=== PATIENT | male | born 1965 | race Caucasian/White ===

== ENCOUNTER → 2022-02-07 11:12 | Outpatient (BNVA) | payer OTHER, SELFPAY | PROVIDERS: Visit Provider Surgery | DX: K21.9 Gastro-esophageal reflux disease without esophagitis (principal) | CPT/HCPCS: 99203 ==

== ENCOUNTER 2022-04-29 06:03 | Day surgery (SDC) | payer OTHER, SELFPAY ==
--- NOTE | 2022-04-29 06:14 | W.PM.OPSFHP ---
Same Day Surgery H&P Indication for Procedure/HPI DATE OF PROCEDURE: April 29, 2022 CHIEF COMPLAINT/INDICATIONFOR SURGICAL PROCEDURE: Worsening acid reflux PREOP DIAGNOSIS: Acid reflux PLANNED PROCEDURE: Operation Date: 04/29/22 07:30 Proposed Procedures p EGD 54921,K21.9(Not Applicable) - Juan Qiu MD 02/07/2022 This is a 56 years old gentleman referred to my practice with worsening acid reflux.? Over the past period of time, has been on PPI therapy for more than 6 months.? Patient is referred to my practice for consideration of diagnostic EGD.? Denies any hematemesis or hemoptysis or nonintentional weight loss or dysphagia or odynophagia Current symptoms: Denies odynophagia Interim history 04/29/2022 Patient comes today for scheduled diagnostic EGD ROS All systems have been reviewed negative except as for the above or per problem list. Medications/Allergies* Home Medications Medication Instructions Recorded Confirmed Type acetaminophen 500 mg capsule 500 mg PO Q6H PRN Pain 02/07/22 04/27/22 History albuterol sulfate 90 mcg/actuation 1 inh inhalation QID 02/07/22 04/27/22 History aerosol inhaler amitriptyline 75 mg tablet 75 mg PO DAILY 02/07/22 04/27/22 History atenolol 25 mg tablet 25 mg PO DAILY 02/07/22 04/27/22 History atorvastatin 20 mg tablet 20 mg PO DAILY 02/07/22 04/27/22 History cholecalciferol (vitamin D3) 25 25 mcg PO DAILY 02/07/22 04/27/22 History mcg (1,000 unit) capsule finasteride 5 mg tablet 5 mg PO DAILY 02/07/22 04/27/22 History fluticasone propionate 50 1 spray intranasal DAILY 02/07/22 04/27/22 History mcg/actuation nasal spray,suspension loratadine 10 mg tablet (Allergy 10 mg PO DAILY PRN Itching 02/07/22 04/27/22 History Relief (loratadine)) losartan 50 mg tablet 50 mg PO DAILY 02/07/22 04/27/22 History omega 3-qji-zlx-fish oil 1,000 mg 1 cap PO DAILY 02/07/22 04/27/22 History (120 mg-180 mg) capsule (Fish Oil) omeprazole 20 mg capsule,delayed 20 mg PO DAILY 02/07/22 04/27/22 History release tamsulosin 0.4 mg capsule 0.4 mg PO DAILY 02/07/22 04/27/22 History Allergies/Adverse Reactions Allergy/AdvReac Type Severity Reaction Status Date / Time No Known Allergies Allergy Verified 04/29/22 06:15 Pertinent History/Comorbid Conditions* Family History (Updated 02/07/22 @ 11:32 by Maya Laird) Diabetes CAD (coronary artery disease) Dementia Denies family history of Cancer Social History Smoking and tobacco status: never smoked Alcohol intake: never Pertinent Exam Findings alert, oriented x 3, regular rate & rhythm and procedure specific exam findings (Abdominal examination nontender nondistended soft) Recommendations Surgery/Procedure today (EGD with possible biopsy) Coding Level of Care Code Acute [place] Hammerer for Marv Mckeon
[2022-04-29 06:23] VITALS: BP 114/82; PULSE 86; RESP 18; TEMP 36.3; O2SAT 95
[2022-04-29] MEDS: sodium chloride 0.9% 1,000 ML 30 ML IV (06:33)
--- NOTE | 2022-04-29 06:54 | ANES.PREANE2 ---
Pre-Anesthetic Assessment Height/Weight: Height 1.7 m Weight 99.79 kg Temp Pulse Resp BP Pulse Ox O2 Del Method 97.4 F L 86 18 114/82 95 04/29/22 06:23 04/29/22 06:23 04/29/22 06:23 04/29/22 06:23 04/29/22 06:23 04/29/22 06:23 Preop Diagnosis: Acid reflux Operation Date: 04/29/22 07:30 Proposed Procedures p EGD 50968,K21.9(Not Applicable) - Juan Qiu MD Familial anesthetic complications: none Was Beta Zulma taken within 24 hours: Yes (NO) Last intake: Intake Last Liquid Date 04/28/22 Last Liquid Time 19:00 Last Solid Date 04/28/22 Last Solid Time 17:00 Social No alcohol and No tobacco Airway Submandibular: within normal limits Cervical ROM: within normal limits Mallampati: Class II Dentition: full Comments: Comments: small mouth Pulmonary Asthma and Sleep Apnea CV/HEM Hypertension None reported Hepatic None reported GI Gastroesophageal Reflux Disease Metabolic Hyperlipidemia and None reported Musc/skel None reported Neuropsych None reported Anesthetic Plan ASA status: 3 Anesthesia: MAC Medications/Allergies Home Medications Medication Instructions Recorded Confirmed Last Taken Type acetaminophen 500 mg capsule 500 mg PO Q6H PRN Pain 02/07/22 04/27/22 04/27/22 History albuterol sulfate 90 mcg/actuation 1 inh inhalation QID 02/07/22 04/27/22 Unknown History aerosol inhaler amitriptyline 75 mg tablet 75 mg PO DAILY 02/07/22 04/27/22 04/28/22 History atenolol 25 mg tablet 25 mg PO DAILY 02/07/22 04/27/22 04/28/22 History atorvastatin 20 mg tablet 20 mg PO DAILY 02/07/22 04/27/22 04/28/22 History cholecalciferol (vitamin D3) 25 25 mcg PO DAILY 02/07/22 04/27/22 04/28/22 History mcg (1,000 unit) capsule finasteride 5 mg tablet 5 mg PO DAILY 02/07/22 04/27/22 04/28/22 History fluticasone propionate 50 1 spray intranasal DAILY 02/07/22 04/27/22 04/27/22 History mcg/actuation nasal spray,suspension loratadine 10 mg tablet (Allergy 10 mg PO DAILY PRN Itching 02/07/22 04/27/22 Unknown History Relief (loratadine)) losartan 50 mg tablet 50 mg PO DAILY 02/07/22 04/27/22 04/28/22 History omega 0-irr-kyw-fish oil 1,000 mg 1 cap PO DAILY 02/07/22 04/27/22 04/27/22 History (120 mg-180 mg) capsule (Fish Oil) omeprazole 20 mg capsule,delayed 20 mg PO DAILY 02/07/22 04/27/22 04/28/22 History release tamsulosin 0.4 mg capsule 0.4 mg PO DAILY 02/07/22 04/27/22 04/28/22 History Allergies Allergy/AdvReac Type Severity Reaction Status Date / Time No Known Allergies Allergy Verified 04/29/22 06:15 Current Medications Generic Name Dose Route Start Last Admin Trade Name Freq PRN Reason Stop Dose Admin Sodium Chloride 1,000 mls @ 30 mls/hr 04/29/22 06:15 04/29/22 06:33 Sodium Chloride 0.9% IV 04/30/22 06:14 30 mls/hr .Q24H [place] Administration PFSH Anesthesia Family History Other CAD (coronary artery disease) Dementia Diabetes Denies family history of Cancer Social History Smoking and tobacco status: never smoked Alcohol intake: never Data Anesthesia Cardiac Studies: No Data to Display
[2022-04-29 07:37] VITALS: BP 110/73; PULSE 77; RESP 18; O2SAT 91
[2022-04-29 07:50] VITALS: BP 121/82; PULSE 77; RESP 18; O2SAT 97
--- NOTE | 2022-04-29 14:12 | ANE.PACU2 ---
Inpatient post-anesthesia follow up: Airway intact: Yes Vital signs: Temperature 97.4 F Pulse Rate 77 Respiratory Rate 18 Blood Pressure 121/82 Pulse Oximetry 97 Oxygen Delivery Me thod Room Air Oxygen Flow Rate 4 Fraction of Inspir ed Oxygen Hydration adequate: Yes Nausea and vomiting: No Pain level: 1 Mental status: Baseline
== END 2022-04-29 08:07 | disposition home or self-care (01) ==
PROVIDERS: Visit Provider Surgery
PROC: 0DJ08ZZ Inspection of Upper Intestinal Tract, Via Natural or Artificial Opening Endoscopic (ICD-10-PCS; CPT 43235; principal; 2022-04-29 07:30)
DX: K21.9 Gastro-esophageal reflux disease without esophagitis (principal); K21.00 Gastro-esophageal reflux disease with esophagitis, without bleeding; K29.70 Gastritis, unspecified, without bleeding; J45.909 Unspecified asthma, uncomplicated; G47.30 Sleep apnea, unspecified; E78.5 Hyperlipidemia, unspecified
CPT/HCPCS: 43239; 88305; J2704; J7030

== ENCOUNTER → 2022-06-01 12:34 | Outpatient (BNVA) | payer OTHER, SELFPAY | PROVIDERS: Visit Provider Nurse Practitioner Family | DX: N40.1 Benign prostatic hyperplasia with lower urinary tract symptoms (principal); N52.9 Male erectile dysfunction, unspecified | CPT/HCPCS: 51798; 99203 ==

== ENCOUNTER → 2022-07-13 09:16 | Outpatient (BNVA) | payer OTHER, SELFPAY | PROVIDERS: Visit Provider Orthopaedic Surgery | DX: M75.32 Calcific tendinitis of left shoulder (principal) | CPT/HCPCS: 99204 ==

== ENCOUNTER → 2022-08-10 10:02 | Outpatient (BNVA) | payer OTHER, SELFPAY | PROVIDERS: Visit Provider Orthopaedic Surgery | DX: M75.32 Calcific tendinitis of left shoulder (principal) | CPT/HCPCS: 99213 ==

== ENCOUNTER 2022-08-29 06:54 | Day surgery (SDC) | payer OTHER, SELFPAY ==
[2022-08-29] VITALS (12 sets, daily range): BP systolic 138–175; BP diastolic 91–120; PULSE 92–102; RESP 12–18; TEMP 36.2–36.6; O2SAT 93–98
--- NOTE | 2022-08-29 07:11 | W.PM.OPSUD ---
Surgery/Procedure H&P Update DATE OF PROCEDURE: August 29, 2022 DATE H&P PERFORMED: 08/10/22 H&P UPDATE INFORMATION: I have reviewed H&P completed within last 30 days PREOP DIAGNOSIS: Calcific tendinitis PLANNED PROCEDURE: Operation Date: 08/29/22 07:00 Proposed Procedures p left shoulder arthroscopy with debridement/ 48152 M75.32(Left) - Jerome Hatch MD s Distal Clavicle Resection(Left) - Jerome Hatch MD
[2022-08-29] MEDS: sodium chloride 0.9% 1,000 ML 30 ML IV (07:27)
--- NOTE | 2022-08-29 07:59 | ANES.PREANE2 ---
Pre-Anesthetic Assessment Height/Weight: Height 1.7 m Weight 95.254 kg Temp Pulse Resp BP Pulse Ox O2 Del Method 97.3 F L 92 18 175/120 98 08/29/22 07:22 08/29/22 07:22 08/29/22 07:22 08/29/22 07:22 08/29/22 07:22 08/29/22 07:24 Preop Diagnosis: Calcific tendinitis Operation Date: 08/29/22 07:00 Proposed Procedures p left shoulder arthroscopy with debridement/ 83409 M75.32(Left) - Jerome Hatch MD s Distal Clavicle Resection(Left) - Jerome Hatch MD Familial anesthetic complications: none Was Beta Zulma taken within 24 hours: Yes Was Clonidine taken within 24 hours: N/A Last intake: Intake Last Liquid Date 08/28/22 Last Liquid Time 18:30 Last Solid Date 08/28/22 Last Solid Time 18:30 Social No alcohol and No tobacco Exam alert, oriented x 3, clear to auscultation bilaterally and regular rate & rhythm Airway Mallampati: Class III Dentition: chipped and other (mulitple missing) Pulmonary Asthma and Sleep Apnea CV/HEM Hypertension GI Gastroesophageal Reflux Disease Metabolic Hyperlipidemia Anesthetic Plan ASA status: 3 Anesthesia: General and Regional (specify below) Risk of > 500 ml blood loss (7ml/kg in children): No Medications/Allergies Home Medications Medication Instructions Recorded Confirmed Last Taken Type acetaminophen 500 mg capsule 500 mg PO Q6H PRN Pain 02/07/22 08/26/22 08/28/22 History albuterol sulfate 90 mcg/actuation 1 inh inhalation QID 02/07/22 08/26/22 08/28/22 History aerosol inhaler amitriptyline 75 mg tablet 75 mg PO DAILY 02/07/22 08/26/22 08/28/22 History atenolol 25 mg tablet 25 mg PO DAILY 02/07/22 08/26/22 08/28/22 00:00 History atorvastatin 20 mg tablet 20 mg PO DAILY 02/07/22 08/26/22 08/28/22 History cholecalciferol (vitamin D3) 25 25 mcg PO DAILY 02/07/22 08/29/22 04/28/22 History mcg (1,000 unit) capsule finasteride 5 mg tablet 5 mg PO DAILY 05/08/26/22 08/28/22 History fluticasone propionate 50 1 spray intranasal DAILY 02/07/22 08/26/22 08/28/22 History mcg/actuation nasal spray,suspension loratadine 10 mg tablet (Allergy 10 mg PO DAILY PRN Itching 02/07/22 08/29/22 08/28/22 History Relief (loratadine)) losartan 50 mg tablet 50 mg PO DAILY 02/07/22 08/26/22 08/28/22 History omega 7-rxw-pyh-fish oil 1,000 mg 1 cap PO DAILY 02/07/22 08/26/22 08/25/22 History (120 mg-180 mg) capsule (Fish Oil) tamsulosin 0.4 mg capsule 0.4 mg PO DAILY 02/07/22 08/26/22 08/28/22 History pantoprazole 40 mg tablet,delayed 40 mg PO DAILY 30 days #30 tabs 04/29/22 08/26/22 08/28/22 Rx release (Protonix) Allergies Allergy/AdvReac Type Severity Reaction Status Date / Time No Known Allergies Allergy Verified 08/29/22 07:19 Current Medications Generic Name Dose Route Start Last Admin Trade Name Freq PRN Reason Stop Dose Admin Sodium Chloride 1,000 mls @ 30 mls/hr 08/29/22 07:15 08/29/22 07:27 Sodium Chloride 0.9% IV 08/30/22 07:14 30 mls/hr .Q24H [place] Administration PFSH Anesthesia Medical History COPD (chronic obstructive pulmonary disease) Hypertension Surgical History History of back surgery 2009 History of cholecystectomy 2019 History of surgery on lower extremity Family History Mother , at age 58 Cancer Other CAD (coronary artery disease) Dementia Diabetes Social History Smoking and tobacco status: never smoked Alcohol intake: current Alcohol intake frequency: holidays/special occasions only Adopted: No Lives independently: Yes Marital status: Single Current occupational status: retired and disabled History of recent travel: No Data Anesthesia 08/29/22 07:35 Cardiac Studies: No Data to Display
--- NOTE | 2022-08-29 08:01 | ANES.PROC ---
Anesthesia Procedures Procedure/Date: 08/29/22 Nerve Block ^: Nerve Block 1: Main Anesthesia: general anesthesia Time Out Performed: Yes Consent: requested by attending/covering physician, from patient, from other, risks and benefits reviewed and patient agrees to proceed Nerve block location: interscalene (L) Anesthesia monitors applied: pulse oximetry, EKG, BP cuff and oxygen Nerve block position: semi sitting Anesthetic Used: ropivicaine 0.5% (20 ml) and with decadron (4 mg) Ultrasound used to: recognize landmarks, visualize and ID brachial plexus and visualize and ID interscalene groove Nerve Stimulator Used?: No Interscalene/Femoral BLK: 2 stimuplex 22 g needle used for position and inplane approach, visualize local anesthetic spread and no vascular puncture identified Injection: neg aspiration of heme and paresthesia +/- Patient Tolerated Procedure: well and no complications Complications: none
[2022-08-29 08:08] LABS: Anion Gap 14.9 (5-19); Blood Urea Nitrogen 17 mg/dL (6-20); Calcium 9.1 mg/dL (8.5-10.5); Carbon Dioxide 24 mmol/L (22-29); Chloride 103 mmol/L (98-107); Glomerular Filtration Rate 99.3 mL/min (90-130); Glucose 99 mg/dL (65-115); Osmolality Calculated 288 mOsm/kg (285-295); Potassium 3.9 mmol/L (3.5-5.1); Sodium 138 mmol/L (136-145)
[2022-08-29] MEDS: ceFAZolin 2,000 MG in sodium chloride 0.9% (plus) 50 ML 100 MG IV (09:15)
[2022-08-29] MEDS: EPINEPHrine 1 mg/mL INJ 2 MG XX (10:05)
--- NOTE | 2022-08-29 11:00 | PM.OP ---
Operative Report Date of procedure: August 29, 2022 Pre-op diagnosis: Preop Diagnosis Calcific tendinitis left shoulder, impingement, degenerative joint disease left acromioclavicular joint Post-op diagnosis: same Procedure done: Arthroscopic left subacromial decompression, distal clavicle excision, and debridement ossific tendinitis left shoulder Pathology: none sent Surgeon: Jerome Hatch Anesthesia: General and Nerve Block (Interscalene block) Estimated blood loss (mL): 10 Complications: nonw Findings: The patient had partial-thickness cartilage loss over the posterior central humeral head but no point was exposed subchondral bone identified. He had a medialized attachment to his biceps tendon but the tendon was stable to probing the biceps appeared healthy. He had prominent spurring the leading edge of his acromion, type II, and enlargement degenerative changes instability of the distal clavicle. Within the central avascular insertion of the supraspinatus tendon gentle debridement produced cavity calcified tissue and consistent with a calcific deposits seen on radiograph Condition: stable Disposition: PACU Brief History: The patient is a 57-year-old male with chronic left shoulder pain unresponsive to anti-inflammatories and injections. Imaging revealed calcific the deposits in the supraspinatus tendon, prominent subacromial spurring, and degenerative changes acromioclavicular joint which are thought to be the source of his pain. Arthroscopic surgery was chosen to debride/remove calcific deposits, and then dress the acromion and the distal clavicle which were thought to be contributing to symptoms. Procedure: The patient was given interscalene block in holding and taken to the operating room. He is given 2 g of Ancef. He is to position the lateral position with his left arm in 15 pounds of traction. Prepped and draped in the usual fashion. A timeout was performed. Course to her portal was made 2 cm inferior and medial to the posterior corner of the acromion. A scope cannula and trocar were driven into the glenohumeral joint. A small anterior portal was made with a scalpel blade to introduce the shaver into the joint. 1 very small loose body was identified which was removed with the shaver. The superior labrum and biceps tendon were carefully probed and found to be stable. The undersurface of the rotator cuff appeared healthy. Arthroscopic equipment was then moved to the subacromial space. A lateral portal was opened up with a scalpel blade and a 8 mm inflow cannula was placed anteriorly into the subacromial space. The bursal aspect of the rotator cuff generally appeared intact with some small spotty areas of calcification identified the avascular zone of the supraspinatus. Initial attention was paid to the undersurface acromion. The [employer]olf probe was used to outline the leading edge of the acromion. A 5.5 mm acromionizer was introduced through the lateral portal and approximately 5 mm of anterior and inferior acromion removed. Debridement was then accomplished medially with the [employer] Werewolf probe identifying the distal clavicle. Through the anterior portal 8 mm of distal clavicle were excised with the acromionizer. Hemostasis provided with the [employer] Werewolf. Final attention was focused on the rotator cuff bursal aspect in the area the calcifications are probe could be passed through the tendon. A collection semigelatinous and solid white calcium deposits were then expressed from the tendon and irrigated from the subacromial space with an incisor shaver. As structural integrity of the tendon appeared to be maintained no formal repair or by augmentation was performed. The shoulder was irrigated with saline. Portals were closed with 3-0 Prolene. Sterile dressings were applied. The patient was placed in a sling. He was extubated taken to the recovery room in stable condition.
[2022-08-29] MEDS: ondansetron 2 mg/ML SDV 2 mL 4 MG IVP (11:25)
--- NOTE | 2022-08-29 11:29 | SUR.PHASEI ---
1110 PT TO PACU 5 PT AWAKES TO VOICE, C/O OF NAUSEA DENIES PAIN, HOB AT 30 DEGREES, PT COUGHS STRONGLY, LT SHOULDER DRESSING D/I FIRST ICE TO SITE, DISTAL HAND PINK WARM WITH STRONG REGULAR PULSE, MONITOR ST -SR WITH NO ECTOPY NOTED, IV TO RT HAND #20 PATENT OF 200ML NS AT KVO RATE ID BAND TO RT WRIST, PT ID'D WITH 2 IDENTIFIERS, GOOD RESP EFFORT NOTED PT AWAKES ON ARRIVAL AND ORAL AIRWAY OUT. 1125 PT CONTINUES TO C/O OF NAUSEA, PT GIVEN COOL CLOTH TO FORE HEAD, SEE MED GIVEN.
[2022-08-29] MEDS: diphenhydrAMINE 50 mg/mL SDV 1mL 12.5 MG IVP (11:40)
--- NOTE | 2022-08-29 12:01 | P.PCN_ITS ---
PACU note Narrative: VSS, Good respiratory effort, report to TOOL AND GAUGE INSPECTOR Exam: awake
--- NOTE | 2022-08-29 12:01 | PM.PACU ---
PACU note Narrative: VSS, Good respiratory effort, report to VENDING ROUTE DRIVER Exam: awake
--- NOTE | 2022-08-29 14:27 | ANE.PACU2 ---
Inpatient post-anesthesia follow up: Airway intact: Yes Vital signs: Temperature 97.3 F Pulse Rate 94 Respiratory Rate 18 Blood Pressure 154/104 Pulse Oximetry 93 Oxygen Delivery Me thod Room Air Oxygen Flow Rate 8 Fraction of Inspir ed Oxygen Hydration adequate: Yes Nausea and vomiting: No Pain level: 1 Mental status: Baseline
== END 2022-08-29 12:31 | disposition home or self-care (01) ==
PROVIDERS: Anesthesiology; Visit Provider Orthopaedic Surgery
PROC: (CPT 29805; principal; 2022-08-29 07:00)
PROC: (CPT 23120; 2022-08-29 07:00)
DX: M19.012 Primary osteoarthritis, left shoulder (principal); M25.812 Other specified joint disorders, left shoulder; M75.32 Calcific tendinitis of left shoulder; G47.30 Sleep apnea, unspecified; I10 Essential (primary) hypertension; E78.5 Hyperlipidemia, unspecified; K21.9 Gastro-esophageal reflux disease without esophagitis; J44.9 Chronic obstructive pulmonary disease, unspecified
CPT/HCPCS: 29823; 29824; 36415; 80048; J0171; J0690; J1100; J1200; J2370; J2405; J2704; J2795; J3010; J3490; J7030

== ENCOUNTER → 2022-09-21 09:08 | Outpatient (BNVA) | payer OTHER, SELFPAY | PROVIDERS: Visit Provider Orthopaedic Surgery | DX: Z98.890 Other specified postprocedural states (principal) | CPT/HCPCS: 99024 ==

== ENCOUNTER → 2022-09-22 12:53 | Outpatient (BNVA) | payer OTHER, SELFPAY | PROVIDERS: Visit Provider Urology | DX: N40.1 Benign prostatic hyperplasia with lower urinary tract symptoms (principal); N52.9 Male erectile dysfunction, unspecified | CPT/HCPCS: 51741; 51798; 81003; 99213 ==

== ENCOUNTER → 2022-10-26 08:00 | Outpatient (BNVA) | payer OTHER, SELFPAY | PROVIDERS: Visit Provider Orthopaedic Surgery | DX: M75.32 Calcific tendinitis of left shoulder (principal) | CPT/HCPCS: 99024 ==

== ENCOUNTER → 2022-11-23 12:30 | Outpatient (BNVA) | payer OTHER, SELFPAY | PROVIDERS: Visit Provider Nurse Practitioner Family | DX: M75.32 Calcific tendinitis of left shoulder (principal); Z98.890 Other specified postprocedural states | CPT/HCPCS: 99213 ==

== ENCOUNTER → 2023-07-26 08:16 | Outpatient (BNVA) | payer OTHER, SELFPAY | PROVIDERS: Referring Provider Physician Assistant; Visit Provider Specialist | DX: G24.3 Spasmodic torticollis (principal); G25.5 Other chorea; M43.6 Torticollis; G24.01 Drug induced subacute dyskinesia; T43.505A Adverse effect of unspecified antipsychotics and neuroleptics, initial encounter | CPT/HCPCS: 36415; 80053; 81271; 82390; 82607; 83516; 84439; 84443; 85025; 85651; 86038; 86255; 86592; 99204 ==

== ENCOUNTER → 2023-10-19 13:33 | Outpatient (BNVA) | payer OTHER, SELFPAY | PROVIDERS: Visit Provider Specialist | DX: G25.5 Other chorea (principal); G24.3 Spasmodic torticollis | CPT/HCPCS: 64616; 99213; J0585 ==

== ENCOUNTER → 2024-01-25 09:04 | Outpatient (BNVA) | payer OTHER, SELFPAY | PROVIDERS: Visit Provider Specialist | DX: G24.3 Spasmodic torticollis (principal); G25.5 Other chorea | CPT/HCPCS: 64616; J0585 ==

== ENCOUNTER → 2024-05-09 09:06 | Outpatient (BNVA) | payer OTHER, SELFPAY | PROVIDERS: Visit Provider Specialist | DX: G24.01 Drug induced subacute dyskinesia (principal); T43.505A Adverse effect of unspecified antipsychotics and neuroleptics, initial encounter; M75.32 Calcific tendinitis of left shoulder; G24.3 Spasmodic torticollis; G25.5 Other chorea; X58.XXXA Exposure to other specified factors, initial encounter | CPT/HCPCS: 99213 ==

== ENCOUNTER → 2024-10-23 09:13 | Outpatient (BNVA) | payer OTHER, SELFPAY | PROVIDERS: Visit Provider Specialist | DX: G24.3 Spasmodic torticollis (principal); G25.5 Other chorea; G24.01 Drug induced subacute dyskinesia; T43.505A Adverse effect of unspecified antipsychotics and neuroleptics, initial encounter; M54.81 Occipital neuralgia; X58.XXXA Exposure to other specified factors, initial encounter | CPT/HCPCS: 64405; 99214; J1010; J3490 ==

== ENCOUNTER 2024-10-29 13:55 | Outpatient (CLI) | payer OTHER, SELFPAY ==
--- NOTE | 2024-10-29 14:15 | MR_ITS ---
WS: [id number] MRI BRAIN WITHOUT CONTRAST HISTORY: G24.3 - Spasmodic torticollis COMPARISON: None available. TECHNIQUE: Diffusion imaging, multiplanar T1, T2 and FLAIR imaging obtained. No evidence for acute infarct or hemorrhage. Abdul-white matter differentiation is normal. Very minimal cerebral volume loss. No prior infarcts. No significant small vessel disease. No tilting of the patient's head. Normal hippocampal formation. No remote or acute infarcts or volume loss. Ventricles and extra-axial spaces are normal. No inferior displacement of cerebellar tonsils. The sella turcica and pituitary gland are unremarkable. Dural venous sinuses and nikolski of Ramirez demonstrate no abnormality on this unenhanced studies. Visualized orbits and optic nerves appear appropriate. Paranasal sinuses: Large amount of mucoperiosteal thickening in the LEFT maxillary sinus with a large mucous retention cyst. No air-fluid levels. Mastoid air cells: Normal. Calvarium and scalp: Intact. MR/MR head wo con* [id number] IMPRESSION: 1. No intracranial mass or hemorrhage. 2. No significant volume loss. 3. LEFT maxillary sinus mucous retention cyst with mucoperiosteal thickening. 4. No mass effect upon the optic chiasm.
--- NOTE | 2024-10-29 15:00 | MR_ITS ---
WS: [id number] MRI CERVICAL SPINE NONCONTRAST HISTORY: G24.3 - Spasmodic torticollis COMPARISON: None available. Technique: Multiplanar, multisequence noncontrast imaging of the cervical spine. Normal cervical alignment. Disc spaces are narrowed and mildly desiccated. No fractures. Signal within the cervical cord is normal. Visualized posterior fossa is unremarkable. Craniocervical junction, C1 and C2 relationship, odontoid process and soft tissues are normal. C2-C3: Normal. C3-C4: Moderate osteophytic ridging. No central stenosis. Moderate to severe bilateral foraminal stenosis due to osteophyte disease. C4-C5: Osteophytic ridging with severe facet joint osteophytes resulting in severe foraminal stenosis, RIGHT greater than LEFT. Additional facet joint arthropathy. Mild central stenosis. C5-C6: Osteophytic ridging and mild disc bulging. Severe LEFT and moderate RIGHT foraminal stenosis. Facet joint arthropathy encroaches upon the LEFT lateral thecal sac. C6-C7: Osteophytic ridging resulting in moderate bilateral foraminal stenosis. C7-T1: Normal. Paraspinal soft tissue are normal. MR/MR cervical spin wo con* [id number] IMPRESSION: 1. Multilevel foraminal stenosis predominantly due to osteophyte and facet dis ease. 2. C3-4: Moderate to severe bilateral foraminal stenosis. 3. C4-5: Severe bilateral foraminal stenosis, RIGHT greater than LEFT. Mild ce ntral stenosis. 4. C5-6: Severe LEFT and moderate RIGHT foraminal stenosis. 5. C6-7: Moderate bilateral foraminal stenosis. 6. No large disc protrusions. No cord myelomalacia. Cord encroachment is most significant at C4-5.
== END 2024-10-29 13:56 | disposition home or self-care (01) ==
PROVIDERS: PCP Family Medicine; Visit Provider Specialist
DX: G24.3 Spasmodic torticollis (principal); M48.02 Spinal stenosis, cervical region; R93.7 Abnormal findings on diagnostic imaging of other parts of musculoskeletal system; M25.78 Osteophyte, vertebrae; M47.892 Other spondylosis, cervical region; M50.322 Other cervical disc degeneration at C5-C6 level; J34.1 Cyst and mucocele of nose and nasal sinus; R93.89 Abnormal findings on diagnostic imaging of other specified body structures
CPT/HCPCS: 70551; 72141

== ENCOUNTER → 2024-11-21 08:55 | Outpatient (BNVA) | payer OTHER, SELFPAY | PROVIDERS: PCP Family Medicine; Visit Provider Specialist | DX: M50.30 Other cervical disc degeneration, unspecified cervical region (principal); G24.3 Spasmodic torticollis; G24.01 Drug induced subacute dyskinesia; T43.505A Adverse effect of unspecified antipsychotics and neuroleptics, initial encounter; M47.12 Other spondylosis with myelopathy, cervical region; M54.12 Radiculopathy, cervical region; X58.XXXA Exposure to other specified factors, initial encounter | CPT/HCPCS: 99214 ==

== ENCOUNTER → 2024-12-17 15:18 | Outpatient (BNVA) | payer OTHER, SELFPAY | PROVIDERS: PCP Family Medicine; Visit Provider Orthopaedic Surgery | DX: Z01.818 Encounter for other preprocedural examination (principal); M54.2 Cervicalgia; M47.12 Other spondylosis with myelopathy, cervical region | CPT/HCPCS: 36415; 72050; 80053; 85025; 99204 ==

== ENCOUNTER 2025-01-22 14:29 | Inpatient (IN) | payer OTHER, SELFPAY ==
[2025-01-22] VITALS (23 sets, daily range): BP systolic 126–171; BP diastolic 80–108; PULSE 78–96; RESP 15–18; TEMP 36.2–37.1; O2SAT 93–100; BMI 34.4
[2025-01-22 08:19] LABS: Bilirubin Urine Negative (Negative); Blood Urine Negative (Negative); Glucose Urine UA Negative (Normal); Ketones Urine Negative (Negative); Leukocyte Esterase Urine Negative (Negative); Nitrate Urine Negative (Negative); Protein Urine Negative (Negative); Specific Gravity, Urine 1.012 (1.005-1.030); Urine Appearance Clear (CLEAR); Urine Color Yellow (Yellow); Urobilinogen Urine 0.2 mg/dL (Negative); pH Urine 5.5 (5-7)
[2025-01-22 08:24] LABS: Bacteria Urine None Seen /hpf; RBC Urine 0-2 /hpf (0-2); Squamous Epithelial Cell Urine 0-5 /hpf (0-5); WBC Urine 0-5 /hpf (0-5)
[2025-01-22] MEDS: sodium chloride 0.9% 1,000 ML 30 ML IV (08:49)
--- NOTE | 2025-01-22 08:54 | ANES.PREANE2 ---
Pre-Anesthetic Assessment Height/Weight: Height 5 ft 7 in Weight 220 lb Temp Pulse Resp BP Pulse Ox O2 Del Method 97.7 F 96 18 154/101 94 Room Air 01/22/25 08:16 01/22/25 08:16 01/22/25 08:16 01/22/25 08:16 01/22/25 08:16 01/22/25 08:16 Preop Diagnosis: Cervical stenosis with myelopathy Operation Date: 01/22/25 10:20 Proposed Procedures p Anterior Cervical Discectomy & Fusion ACDF w/ Anterior Interbody Fusion w/ Cage w/ Instrumentation w/ Allograft w/ Navigation(Not Applicable) - Dennys Santoro, DO Was Beta Zulma taken within 24 hours: Yes Was Clonidine taken within 24 hours: N/A Last intake: Intake Last Liquid Date 01/21/25 Last Liquid Time 18:00 Last Solid Date 01/21/25 Last Solid Time 18:00 Social No alcohol and No tobacco Smokes occasional marijuana Exam alert, oriented x 3, clear to auscultation bilaterally and regular rate & rhythm Airway Submandibular: within normal limits Cervical ROM: within normal limits Mallampati: Class III Comments: Comments: No upper teeth, denies any loose teeth on bottom Anesthetic Plan ASA status: 3 Anesthesia: General Other: No prior issues with anesthesia NPO since yesterday evening History of hypertension on atenolol and losartan GERD on rabeprazole Smokes marijuana occasionally Labs reviewed and acceptable for procedure today Plan for general anesthesia Medications/Allergies Home Medications ?Medication ?Instructions ?Recorded ?Confirmed ?Last Taken ?Type acetaminophen 500 mg capsule 500 mg PO Q6H PRN Pain 02/07/22 01/22/25 08/28/22 History albuterol sulfate 90 mcg/actuation 1 inh inhalation QID 02/07/22 01/22/25 08/28/22 History aerosol inhaler atenolol 25 mg tablet 25 mg PO DAILY 02/07/22 01/22/25 01/22/25 History atorvastatin 20 mg tablet 20 mg PO DAILY 02/07/22 01/22/25 01/21/25 History finasteride 5 mg tablet 5 mg PO DAILY 02/07/22 01/22/25 01/21/25 History losartan 50 mg tablet 50 mg PO DAILY 02/07/22 01/22/25 01/21/25 History rabeprazole 20 mg tablet,delayed 20 mg PO BID 01/10/25 01/22/25 01/22/25 History release Allergies Allergy/AdvReac Type Severity Reaction Status Date / Time Alpha-Gal Allergy Unknown Verified 01/22/25 08:55 (Thhnbcbxe-Fjywa-2,3-Gala Current Medications Generic Name Dose Route Start Last Admin Trade Name Freq PRN Reason Stop Dose Admin Sodium Chloride 1,000 mls @ 30 mls/hr 01/22/25 08:15 01/22/25 08:49 Sodium Chloride 0.9% IV 01/23/25 08:14 30 mls/hr .Q24H [place] Administration PFSH Anesthesia Medical History Hypertension COPD (chronic obstructive pulmonary disease) Surgical History History of surgery on lower extremity History of cholecystectomy 2019 History of back surgery 2010 Family History Mother , at age 58 Cancer Other CAD (coronary artery disease) Dementia Diabetes Social History Smoking and tobacco/nicotine status: unknown if used tobacco/nicotine Alcohol intake: current Alcohol intake frequency: few times a month Substance/Drug Use: current Substance/Drug use frequency: daily Adopted: No Lives independently: Yes Marital status: Current occupational status: retired and disabled Data Anesthesia Urine 01/22/25 Range/Units 08:00 Urine Color Yellow (Yellow) Urine Appearance Clear (CLEAR) Urine pH 5.5 (5-7) Ur Specific Ethel 1.012 (1.005-1.030) Urine Protein Negative (Negative) Urine Glucose (UA) Negative (Normal) Urine Ketones Negative (Negative) Urine Nitrate Negative (Negative) Urine Bilirubin Negative (Negative) Ur Leukocyte Esterase Negative (Negative) Urine RBC 0-2 (0-2) /hpf Urine WBC 0-5 (0-5) /hpf
--- NOTE | 2025-01-22 10:22 | W.PM.OPSFHP ---
Same Day Surgery H&P Indication for Procedure/HPI DATE OF PROCEDURE: January 22, 2025 CHIEF COMPLAINT/INDICATIONFOR SURGICAL PROCEDURE: Neck and arm pain PREOP DIAGNOSIS: Cervical stenosis with myelopathy PLANNED PROCEDURE: Operation Date: 01/22/25 10:20 Proposed Procedures p Anterior Cervical Discectomy & Fusion ACDF w/ Anterior Interbody Fusion w/ Cage w/ Instrumentation w/ Allograft w/ Navigation(Not Applicable) - Dennys Santoro, DO Medications/Allergies* Home Medications ?Medication ?Instructions ?Recorded ?Confirmed ?Type acetaminophen 500 mg capsule 500 mg PO Q6H PRN Pain 02/07/22 01/22/25 History albuterol sulfate 90 mcg/actuation 1 inh inhalation QID 02/07/22 01/22/25 History aerosol inhaler atenolol 25 mg tablet 25 mg PO DAILY 02/07/22 01/22/25 History atorvastatin 20 mg tablet 20 mg PO DAILY 02/07/22 01/22/25 History finasteride 5 mg tablet 5 mg PO DAILY 02/07/22 01/22/25 History losartan 50 mg tablet 50 mg PO DAILY 02/07/22 01/22/25 History rabeprazole 20 mg tablet,delayed 20 mg PO BID 01/10/25 01/22/25 History release Allergies/Adverse Reactions Allergy/AdvReac Type Severity Reaction Status Date / Time Alpha-Gal Allergy Unknown Verified 01/22/25 08:55 (Vowwoecgj-Vmlph-7,3-Gala Current Medications: Generic Name Dose Route Start Last Admin Trade Name Freq PRN Reason Stop Dose Admin Sodium Chloride 1,000 mls @ 30 mls/hr 01/22/25 08:15 01/22/25 08:49 Sodium Chloride 0.9% IV 01/23/25 08:14 30 mls/hr .Q24H [place] Administration Pertinent History/Comorbid Conditions* Medical History (Updated 11/21/24 @ 11:48 by Tara Oden MD) Hypertension COPD (chronic obstructive pulmonary disease) Surgical History (Updated 09/21/22 @ 09:57 by Jerome Hatch MD) History of surgery on lower extremity History of cholecystectomy 2019 History of back surgery 2009 Family History (Updated 06/01/22 @ 13:06 by Barrera Gates) Mother, at age 58 Diabetes CAD (coronary artery disease) Dementia Cancer Mother Social History Smoking and tobacco/nicotine status: unknown if used tobacco/nicotine Alcohol intake: current Alcohol intake frequency: few times a month Substance/Drug Use: current Substance/Drug use frequency: daily Adopted: No Lives independently: Yes Marital status: Current occupational status: retired and disabled Pertinent Exam Findings alert, oriented x 3 and procedure specific exam findings Recommendations Risks and benefits of procedure reviewed Surgery/Procedure today Coding Level of Care Code Acute Code for [facility] Fwalyssa
[2025-01-22] MEDS: ceFAZolin 2,000 mg SDV 2000 MG IVP ×2 (11:55→20:14)
[2025-01-22] MEDS: lidocaine-epi 1% 20 mL INJ 10 ML INJECTION (12:59)
--- NOTE | 2025-01-22 14:20 | XR_ITS ---
WS: [id number] XR cervical spine 1V 11177 REASON FOR EXAM: ACDF; OR PICS FINDINGS: Anterior plate and screw fixation with interbody fusion devices C4-C7. Surgical appliances are intact and in proper position and alignment. XR/XR cervical spine 1V 11719 IMPRESSION: Anterior cervical spine fusion as above without abnormality.
--- NOTE | 2025-01-22 14:27 | P.OP_ITS ---
Operative Report Date of procedure: January 22, 2025 Pre-op diagnosis: Cervical stenosis with myelopathy Post-op diagnosis: same Procedure done: 1. Anterior dikectomy C4/5 2. Anterior diskectomy C5/6 3. Anterior discectomy C6/7 4. Insertion of cage C4/5 5. Insertion of cage C5/6 6. Insertion of Cage C6/7 7. Instrumentation with anterior plate from C4-C7 8. Use of allograft Surgeon: Dennys Santoro DO Estimated blood loss (mL): 100 Procedure: 1. Anterior dikectomy C4/5 2. Anterior diskectomy C5/6 3. Anterior discectomy C6/7 4. Insertion of cage C4/5 5. Insertion of cage C5/6 6. Insertion of Cage C6/7 7. Instrumentation with anterior plate from C4-C7 8. Use of allograft The patient was taken to the operating room, where he underwent general endotracheal anesthesia without complications. He was then positioned supine on the operating table, and all areas of impingement were well padded. The arms were carefully padded and tucked at his sides. A roll was placed between the shoulder blades.. An x-ray was done to determine the appropriate level for the skin incision. The entire neck was then sterilely prepped and draped in the usual fashion. Neuromonitoring was attached prior to prepping. A transverse skin incision was made and carried down to the platysma muscle. This was then split in line with its fibers. Blunt dissection was carried down medial to the carotid sheath and lateral to the trachea and esophagus until the anterior cervical spine was visualized. A needle was placed into a disc and an x-ray was done to determine its location. The longus colli muscles were then elevated bilaterally with the electrocautery unit. Self-retaining retractors were placed deep to the longus colli muscle. Attention was brought to the C4/5 level that was confirmed on x-ray. A caspar pin was placed into the C4 vertebrae and the C5 vertebrae. The disk space was then distracted. The microscope was then brought in. A radical anterior discectomies were performed at C4/5 which was. This included complete removal of the anterior annulus, nucleus, and posterior annulus. The posterior longitudinal ligament was removed as were the posterior osteophytes. Foraminotomies were then accomplished bilaterally. This was done using a high speed fredy, kerrison rongeurs and curretes Once all of this was accomplished, the curved currette was used to check for any residual compression. The central canal was wide open as were the foramen. A high-speed bur was used to remove the cartilaginous endplates above and below the interspace. Bleeding cancellous bone was exposed. The disc space were measured and appropriate size cage were placed sterilely onto the field. Allogra ft graft was packed into the cages. The cage was then placed and there was good juxtaposition against the bleeding decorticated surfaces and good distraction of each interspace. Attention was brought to the next interspace. The [place] pins were removed. Bone wax was used to prevent any bleeding from occurring at the pin sites. Attention was brought to the C5/6 level that was confirmed on x-ray. A caspar pin was placed into the C5 vertebrae and the C6 vertebrae. The disk space was then distracted. The microscope was then brought in. A radical anterior discectomies were performed at C5/6. This included complete removal of the anterior annulus, nucleus, and posterior annulus. The posterior longitudinal ligament was removed as were the posterior osteophytes. Foraminotomies were then accomplished bilaterally. This was done using a high speed fredy, kerrison rongeurs and curretes Once all of this was accomplished, the curved currette was used to check for any residual compression. The central canal was wide open as were the foramen. A high-speed bur was used to remove the cartilaginous endplates above and below the interspace. Bleeding cancellous bone was exposed. The disc space were measured and appropriate size cage were placed sterilely onto the field. Allograft graft was packed into the cages. The cage was then placed and there was good juxtaposition against the bleeding decorticated surfaces and good distraction of each interspace. Attention was brought to the next interspace. The [place] pins were removed. Bone wax was used to prevent any bleeding from occurring at the pin sites. Attention was brought to the C6/7 level that was confirmed on x-ray. A caspar pin was placed into the C6 vertebrae and the C7 vertebrae. The disk space was then distracted. The microscope was then brought in. A radical anterior discectomies were performed at C6/7. This included complete removal of the anterior annulus, nucleus, and posterior annulus. The posterior longitudinal ligament was removed as were the posterior osteophytes. Foraminotomies were then accomplished bilaterally. This was done using a high speed fredy, kerrison rongeurs and curretes Once all of this was accomplished, the curved currette was used to check for any residual compression. The central canal was wide open as were the foramen. A high-speed bur was used to remove the cartilaginous endplates above and below the interspace. Bleeding cancellous bone was exposed. The disc space were measured and appropriate size cage were placed sterilely onto the field. Allograft graft was packed into the cages. The cage was then placed and there was good juxtaposition against the bleeding decorticated surfaces and good distraction of each interspace. The [place] pins were removed. Bone wax was used to prevent any bleeding from occurring at the pin sites. The appropriate size anterior cervical locking plate was chosen and bent into gentle lordosis. Two screws were then placed into each of the vertebral bodies at C4, C5, C6 and C7. There was excellent purchase. A final x-ray was done confirming good position of the hardware and Cages. The locking screws were then applied, also with excellent purchase. Following a final copious irrigation, there was good hemostasis and no dural leaks. The carotid pulse was strong. The wounds were then closed in layers using 2-0 Vicryl suture for the platysma muscle, 2-0 Vicryl suture for the subcutaneous tissue, and 4-0 monocryl suture in a subcuticular skin closure. Glue was placed followed by application of a sterile dressing. The drain was hooked to bulb suction. A soft collar was applied. The patient was then carefully returned to the supine position on his hospital bed where he was reversed and extubated and taken to the recovery room having tolerated the procedure well.
[2025-01-22] MEDS: fentaNYL 50 mcg/mL INJ 2mL IVP ×2 (14:33→14:43)
--- NOTE | 2025-01-22 15:10 | ANE.PACU2 ---
Inpatient post-anesthesia follow up: Airway intact: Yes Vital signs: Temperature 98.4 F Pulse Rate 88 Respiratory Rate 20 Blood Pressure 161/100 Pulse Oximetry 97 Oxygen Delivery Me thod Room Air Oxygen Flow Rate 3 Fraction of Inspir ed Oxygen Hydration adequate: Yes Nausea and vomiting: No Pain level: 2 Mental status: Baseline
[2025-01-22] MEDS: ketorolac 30 mg/mL INJ IVP ×2 (15:38→21:52)
[2025-01-22] MEDS: HYDROcodone-acetaminophen 5-325 mg Tablet PO (15:38)
[2025-01-22] MEDS: morphine 4 mg/mL SDV 1 mL 2 MG IVP ×3 (15:39→20:26)
[2025-01-22] MEDS: losartan 50 mg Tablet PO (16:04)
[2025-01-22] MEDS: atenolol 50 mg Tablet 25 MG PO (16:04)
[2025-01-22] MEDS: albuterol 2.5 mg/3 mL Neb INHALATION ×2 (16:11→20:09)
[2025-01-22] MEDS: docusate sodium 100 mg Capsule PO (17:29)
[2025-01-23] VITALS: BP 148/78; PULSE 91; RESP 17; TEMP 36.9; O2SAT 96
[2025-01-23] MEDS: morphine 4 mg/mL SDV 1 mL 2 MG IVP (01:04)
[2025-01-23 04:00] VITALS: BP 177/99; PULSE 93; RESP 18; TEMP 37; O2SAT 98
[2025-01-23] MEDS: ceFAZolin 2,000 mg SDV 2000 MG IVP (04:04)
[2025-01-23] MEDS: HYDROcodone-acetaminophen 5-325 mg Tablet PO ×2 (04:04→08:49)
--- NOTE | 2025-01-23 08:16 | PM.DCS ---
Discharge Providers Date of Admission: 01/22/25 14:29 Date of Discharge: January 23, 2025 Attending Provider at Admission: Dennys Santoro DO Attending Provider at Discharge: Dennys Santoro DO Primary Care Provider: Annabel Jackson MD Reason for Visit Reason for Visit: M54.12 Physical Exam Narrative: Patient is sitting up in bed comfortable. Pain is controlled. Hemovac drain had about 100 cc out last night. Urinary Catheter Management: Blanc: Cath Placed During This Visit: yes, but has since been removed by the nurse Reason for Continuing Indwelling Catheter: Decision to DC Catheter Urinary Catheter Date of Insertion: 01/22/25 Urinary Catheter Time of Insertion: 12:10 Date Urinary Catheter Removed: 01/23/25 Time Urinary Catheter Discontinued: 06:04 Discharge Data Studies Completed and Pending Pending at discharge Category Date Time Status C-arm Fluoroscopy 75715 Routine Exams 01/22/25 08:06 Ordered XR cervical spine 1V 84250 Routine Exams 01/22/25 14:20 Taken Laboratory Results Urine Color Yellow (Yellow) 01/22/25 08:00 Urine Appearance Clear (CLEAR) 01/22/25 08:00 Urine pH 5.5 (5-7) 01/22/25 08:00 Ur Specific [place] 1.012 (1.005-1.030) 01/22/25 08:00 Urine Protein Negative (Negative) 01/22/25 08:00 Urine Glucose (UA) Negative (Normal) 01/22/25 08:00 Urine Ketones Negative (Negative) 01/22/25 08:00 Urine Blood Negative (Negative) 01/22/25 08:00 Urine Nitrate Negative (Negative) 01/22/25 08:00 Urine Bilirubin Negative (Negative) 01/22/25 08:00 Urine Urobilinogen 0.2 mg/dL (Negative) 01/22/25 08:00 Ur Leukocyte Esterase Negative (Negative) 01/22/25 08:00 Urine RBC 0-2 /hpf (0-2) 01/22/25 08:00 Urine WBC 0-5 /hpf (0-5) 01/22/25 08:00 Ur Squamous Epith Cells 0-5 /hpf (0-5) 01/22/25 08:00 Amorphous Sediment Not Reportable 01/22/25 08:00 Urine Bacteria None seen /hpf (NONE) 01/22/25 08:00 Hyaline Casts 6.20 /lpf 01/22/25 08:00 Vitals Last Vital Signs Temp 98.6 F 01/23/25 04:00 Pulse 93 01/23/25 04:00 Resp 18 01/23/25 04:00 BP 177/99 01/23/25 04:00 Pulse Ox 98 01/23/25 04:00 O2 Del Method Room Air 01/23/25 04:00 O2 Flow Rate 3 01/22/25 14:54 Discharge Plan Discharge Patient Disposition: Home Condition: Stable Prescriptions: New hydrocodone-acetaminophen 5-325 mg tablet 1 - 2 tab PO .Q4-6H Qty: 40 0RF Continued acetaminophen 500 mg capsule 500 mg PO Q6H PRN (Reason: Pain) albuterol sulfate 90 mcg/actuation HFA aerosol inhaler 1 inh inhalation QID atenolol 25 mg tablet 25 mg PO DAILY atorvastatin 20 mg tablet 20 mg PO DAILY finasteride 5 mg tablet 5 mg PO DAILY losartan 50 mg tablet 50 mg PO DAILY rabeprazole 20 mg Tablet,Delayed Release (Dr/Ec) 20 mg PO BID Discharge Orders: Discharge Order (Routine); Ordered 01/23/25 Ordered By: Dennys Santoro Discharge Diet: Advance as tolerated Discharge Activity: Limit activity as instructed Patient Instructions: Acute Wound Care (DC), Opioid Safety, Post Anesthesia Care Activity Restrictions/Additional Instructions: Thank you for choosing [facility] for your care! The following is a list of instructions, from your provider, to follow upon your discharge to ensure you have the optimal recovery from your recent injury or surgery. Anterior Cervical Discectomy and Fusion: What to Expect at Home Your Recovery Follow-up care is a kate part of your treatment and safety. Be sure to make and go to all appointments, and call your doctor if you are having problems. If you do not already have a follow-up appointment made, call office in the next 1-3 days to make follow up appointment for 2 weeks at [phone]. It is also a good idea to know your test results and keep a list of the medicines you take. You can expect your neck to feel stiff or sore after surgery. This should improve in the weeks after surgery. But it may take 4 to 6 months for you to get better completely. You may have trouble sitting or standing in one position for very long and may need pain medicine in the weeks after your surgery. It may take 4 to 6 weeks to get back to your usual activities, but it may depend on what kind of surgery you had. Your throat will feel sore and it may be difficult to swallow for the first 3 days after your surgery. As long as you can get liquids down without difficulty, this should slowly improve, otherwise call our office or seek medical attention if it becomes increasingly difficult to get anything down including liquids. Avoid hot liquids for first 3-5 days. Soothing foods/liquids such as jello, pudding, and luke warm soups are recommended until swallowing improves. Staying elevated will also help, it's advised you keep propped up at while sleeping to help reduce the swelling. You may use an ice pack directly on your incision or around it on the front of your neck, using a cloth to protect your skin; and a heating pad to the back of your neck as needed. Do not use over the counter anti-inflammatory medications (Ibuprofen, Motrin, Aleve, Advil, etc) Taking these meds after having a fusion can delay fusion rates, we recommend you avoid them for the first 3 months after your surgery[address] Dr. Santoro may advise you to work with a physical therapist to strengthen the muscles around your neck and back - this will be discussed at your follow - up appointments. The pain or numbness you were having in your arms before surgery should get better or go away completely. This care sheet gives you a general idea about how long it will take for you to recover. But each person recovers at a different pace. Follow the steps below to get better as quickly as possible. How can you care for yourself at home? Activity ? Rest when you feel tired. Getting enough sleep will help you recover. ? Try to walk each day. Start by walking a little more than you did the day before. Bit by bit, increase the amount you walk. Walking boosts blood flow and helps prevent pneumonia and constipation. Walking may also decrease your muscle soreness after surgery. ? No lifting anything that is more that 5 pounds. This may include heavy grocery bags and milk containers, a heavy briefcase or backpack, cat litter or dog food bags, a child, or a vacuum furniture cleaner. ? Avoid strenuous activities, such as bicycle riding, jogging, weightlifting, or aerobic exercise, until your doctor says it is okay. ? Do not drive until your follow-up visit after your surgery, or until your doctor says it isokay. ? Avoid taking long car trips for 2 to 4 weeks after surgery. Your neck may become tired and painful from sitting too long in one position. ? You will probably need to take 4 to 6 weeks off from work. It depends on the type of work you do and how you feel. ? You may have sex as soon as you feel able, but avoid positions that put stress on your neck or cause pain. Diet ? You can eat your normal diet. If your stomach is upset, try bland, low-fat foods like plain rice, broiled chicken, toast, and yogurt ? Drink plenty of fluids. If you have kidney, heart, or liver disease and have to limit fluids, talk with your doctor before you increase the amount of fluids you drink. ? You may notice that your bowel movements are not regular right after your surgery. This is common. Try to avoid constipation and straining with bowel movements. You may want to take a fiber supplement every day. If you have not had a bowel movement after a couple of days, ask your doctor about taking a mild laxative. Medicines ? Take pain medicines exactly as directed. 1. If Dr. Santoro gave you a prescription medicine for pain, take lt as prescribed. 2. Do not take two or more pain medicines at the same time unless the doctor told you to. Many pain medicines have acetaminophen, which is Tylenol. Too much acetaminophen {Tylenol) can be harmful. 3. If you think your pain pill is making you sick to your stomach: 4. Take your pills after meals (unless your doctor has told you not to). 5. Ask your Dr. for a different pain pill. Incisioncare ? Remove your dressing 48hours after your surgery. Ok to shower and get the incision wet. Do not overtly wash your incision. When done, pad dry, leave open to air thereafter. Avoid creams and ointments directly on your incision. ? Your sutures in the incision will dissolve and fall out on their own. ? Keep the area clean and dry. You may cover it with a gauze bandage if it weeps or rubs against clothing; if you choose to do this, change the dressing everyday. Other instructions ? Use a heating pad, hot water bottle, or gentle massage on your back to reduce stiffness. Avoid putting heat on your incision When should you call for help? ? Call 911 anytime you think you may need emergency care. For example, call if: ? You pass out (lose consciousness). ? You have sudden chest pain and shortness of breath, or you cough upblood. ? You cannot swallow. ? You have severe pain in your neck or back. ? Call your Dr. or seek immediate medical care if: ? You have pain that does not get better after you take pain pills. ? You have loose stitches, or your incision comes open. ? You have blood or fluid draining from the incision. ? You have signs of infection, such as: 1. Increased pain, swelling, warmth, or redness. 2. Red streaks leading from the site. 3. Pus draining from the site. 4. Swollen lymph nodes in your neck or armpits. 5. A fever. ? You have severe pain in your arms. ? You have new or increased weakness or numbness in your arms. ? Watch closely for any changes in your health, and be sure to contact your doctor if: ? You do not have a bowel movement after taking a laxative. Discharge Attestations Time Spent in Discharge Care*: less than 30 min Quality Metrics Clinical Quality Measures [ No reported AMI, CVA or VTE this stay] Coding Level of Care Code Acute Code for [facility] Fwalyssa
[2025-01-23 08:25] VITALS: BP 161/100; PULSE 84; PULSE 88; RESP 16; RESP 20; TEMP 36.9; O2SAT 97; O2SAT 98
[2025-01-23] MEDS: pantoprazole DR 40 mg Tablet PO (08:48)
[2025-01-23] MEDS: atorvastatin 40 mg Tablet 20 MG PO (08:48)
[2025-01-23 08:49] VITALS: BP 161/100
[2025-01-23] MEDS: atenolol 50 mg Tablet 25 MG PO (08:49)
[2025-01-23] MEDS: finasteride 5 mg Tablet PO (08:49)
[2025-01-23] MEDS: losartan 50 mg Tablet PO (08:49)
[2025-01-23] MEDS: docusate sodium 100 mg Capsule PO (08:50)
--- NOTE | 2025-01-23 09:55 | PC.NURSE ---
Hemovac drained pulled
--- NOTE | 2025-01-23 10:04 | PC.CHAP ---
Pastoral Care Encounter/Spiritual Assessment Type of Contact [] Declined vice president payer visit [] Patient/Family/Request visit [] Outpatient visit [] Follow-up visit [] Physician referral [] Code/Alert [x] Routine visit [] Staff referral [] Actively dying [] Patient sleeping [] Family support [] [] Out of room [] Palliative care [] [] Receiving care in room [] Pre-surgical visit [] Trauma [] Long length of stay [] ICU visit [] Other: Relational/Emotional Strength [] Patient feels connected with others/family/visitors/staff [] Distress [] Loneliness/isolation [] Abandonment Spirituality of Patient [] Person of Tanja [] Attends Congregational of their Tanja [x] Believes in Prayer [] Reads Bible or Mu-Ism materials [] There are Spiritual issues to be addressed Resident Physician In Radiology Interventions [x] Prayer [x] Active listening [] Non-anxious presence [] Spiritual/emotional support [] Crisis/trauma care [] Spiritual counseling [] Bereavement support [] Provided bereavement packet [x] Provided Bible/devotional materials [] Provided toy/stuffed animal, coloring book to patient or family member [] Provided Communion [] Anointing/Quinlan [] Salvation [x] Completed spiritual assessment [] Other: Impact on Illness or Injury [] Angry [] Fearful [] Anxious [] Often cries [] Exhaustion [] Unable to work [] Unable to attend confucianist [] Unable to walk/stand [] Unable to read [] Unable to drive [] Unable to eat/drink [] Unable to sleep [] Unable to be with family [] Patient intubated [] Other: Summary Time spent with patient 10 min
[2025-01-23 10:36] VITALS: BP 161/100; PULSE 88; RESP 20; TEMP 36.9; O2SAT 97
--- OUTSIDE RECORDS SUMMARY | 2025-01-23 12:56 | XMS_ITS | Clinical Summary ---
Author Organization [facility] [address] [facility] Address [address] [place] [address] Phone Care Team Providers Care Visual And Stock Associate Name Role Phone Annabel Jackson MD Primary Care Provi rubens Social History Tobacco Use Types Packs/Day Years Used Date Smoking Tobacco: Never Assessed Sex and Gender Information Value Date Recorded Sex Assigned at Not on file Legal Sex Male 12:40 PM CDT Gender Identity Not on file Sexual Orientation Not on file Plan of Treatment Health Maintenance Due Date Last Done Comments FIT-DNA Q 3 years 2009 FIT/FOBT Q 1 year 2009 Flex Sig/CT Colonography Q 5 years 06/14/20092000 INFLUENZA VACCINE (#1) 2024 , 06/25/2021, 07/10/2020, Additional history exists HEPATITIS B VACCINES (1 of 3 - Risk 3-dose series) 2024 05/16/2001 RSV VACCINE (60+ or ) (1 - Risk 60-74 years 1-dose series) 2024 COLORECTAL SCREENING 07/17/2024 07/17/2014, 07/17/2014, 07/17/2014, Additional history exists Colorectal Cancer Screening 07/17/2024 DTAP/TDAP/TD VACCINES (5 - T d or Tdap) 01/14/2032 01/13/2022, 11/11/2019, 05/16/2012, Additional history exists ZOSTER VACCINE Completed 08/26/2021, 06/25/2021 Insurance [place] [employer] Care Teams Visual And Stock Associate Relationship Specialty Start Date End Date Annabel Jackson MD [address] [place] [address] PCP - General Family Practice 11/29/22
== END 2025-01-23 10:00 | disposition home or self-care (01) | DRG 472 ==
LOC: MEDSURG 01-23 08:14
PROVIDERS: Admitting Provider Orthopaedic Surgery; PCP Family Medicine; Visit Provider Orthopaedic Surgery
PROC: 0RB30ZZ Excision of Cervical Vertebral Disc, Open Approach (ICD-10-PCS; CPT 22551; principal; 2025-01-22 10:00)
DX: M48.02 Spinal stenosis, cervical region (principal); G99.2 Myelopathy in diseases classified elsewhere; Z79.899 Other long term (current) drug therapy; Z88.8 Allergy status to other drugs, medicaments and biological substances; I10 Essential (primary) hypertension; J44.9 Chronic obstructive pulmonary disease, unspecified
CPT/HCPCS: 51702; 72020; 76000; 81001; 94640; 97161; C1713; C1763; C9359; G0378; J0131; J0330; J0690; J1100; J1171; J1885; J2250; J2270; J2405; J3010; J3490; J7030; J7613; J9999

== ENCOUNTER → 2025-02-06 07:55 | Outpatient (BNVA) | payer OTHER, SELFPAY | PROVIDERS: PCP Family Medicine; Visit Provider Orthopaedic Surgery | DX: Z98.1 Arthrodesis status (principal) | CPT/HCPCS: 99024 ==

== ENCOUNTER → 2025-03-04 07:51 | Outpatient (BNVA) | payer OTHER, SELFPAY | PROVIDERS: PCP Family Medicine; Visit Provider Orthopaedic Surgery | DX: Z98.890 Other specified postprocedural states (principal); Z98.1 Arthrodesis status | CPT/HCPCS: 72040; 99024 ==

== ENCOUNTER → 2025-03-13 13:54 | Outpatient (BNVA) | payer OTHER, SELFPAY | PROVIDERS: Visit Provider Specialist | DX: G24.01 Drug induced subacute dyskinesia (principal); T43.505A Adverse effect of unspecified antipsychotics and neuroleptics, initial encounter; M47.12 Other spondylosis with myelopathy, cervical region; M54.12 Radiculopathy, cervical region; X58.XXXA Exposure to other specified factors, initial encounter | CPT/HCPCS: 99214 ==

== ENCOUNTER → 2025-04-15 15:16 | Outpatient (BNVA) | payer OTHER, SELFPAY | PROVIDERS: Visit Provider Orthopaedic Surgery | DX: Z98.890 Other specified postprocedural states (principal); Z98.1 Arthrodesis status | CPT/HCPCS: 72040; 99024 ==

== ENCOUNTER → 2025-04-17 08:28 | Outpatient (BNVA) | payer OTHER, SELFPAY | PROVIDERS: Referring Provider Specialist; Visit Provider Specialist | DX: R20.0 Anesthesia of skin (principal) | CPT/HCPCS: 95909; 95910 ==

== ENCOUNTER 2025-04-25 09:01 | Outpatient (CLI) | payer OTHER, SELFPAY ==
--- NOTE | 2025-04-25 10:15 | MR_ITS ---
WS: [id number] MRI LUMBAR SPINE NONCONTRAST TECHNIQUE: Sagittal T1, T2 and STIR imaging. Axial T1 and T2 imaging. CLINICAL INFORMATION: G62.89 - Other specified polyneuropathies COMPARISON: None. FINDINGS: Mild lumbar curve. No acute compression. Grade 1 anterolisthesis L4 on L5 and L5 on S1. Pedicle screw fixation L5-S1. L1-L2: Normal. L2-L3: Mild disc bulging. Slight narrowing of the subarticular recess bilaterally. Mild bilateral foraminal narrowing moderate facet arthropathy. L3-L4: Slight retrolisthesis. Disc desiccation. Disc bulging with impingement of the subarticular recess RIGHT greater than LEFT. Moderate central canal stenosis. Moderate LEFT greater than RIGHT foraminal narrowing. L4-L5: Mild annular bulging. Impingement on the traversing L5 nerve roots bilaterally. Moderate facet arthropathy. Mild RIGHT foraminal narrowing. L5-S1: Grade 1 anterolisthesis. Pedicle screw fixation. Spinal canal and foramen are patent. Visualized pelvic bony structures: Normal. Paravertebral soft tissues: Normal. RIGHT renal cyst measures 2.3 cm. MR/MR lumbar spine wo con* [id number] IMPRESSION: 1. Moderate central canal stenosis L3-4. 2. Moderate LEFT greater than RIGHT L3-4 foraminal narrowing. 3. Mild RIGHT L4-5 foraminal narrowing. 4. Annular bulging L4-5 impinges the traversing L5 nerve roots. 5. Pedicle screw fixation L5-S1
== END 2025-04-25 09:02 | disposition home or self-care (01) ==
LOC: RAD 09:02
PROVIDERS: PCP Family Medicine; Visit Provider Specialist
DX: G62.89 Other specified polyneuropathies (principal); M54.50 Low back pain, unspecified; M48.061 Spinal stenosis, lumbar region without neurogenic claudication; M51.369 Other intervertebral disc degeneration, lumbar region without mention of lumbar back pain or lower extremity pain
CPT/HCPCS: 72148

== ENCOUNTER → 2025-05-08 14:22 | Outpatient (BNVA) | payer OTHER, SELFPAY | PROVIDERS: PCP Family Medicine; Visit Provider Orthopaedic Surgery | DX: M48.061 Spinal stenosis, lumbar region without neurogenic claudication (principal); Z98.1 Arthrodesis status; M47.12 Other spondylosis with myelopathy, cervical region; M54.12 Radiculopathy, cervical region; G24.3 Spasmodic torticollis | CPT/HCPCS: 72040; 72110; 99214 ==

== ENCOUNTER → 2025-07-15 08:25 | Outpatient (BNVA) | payer OTHER, SELFPAY | PROVIDERS: PCP Family Medicine; Visit Provider Orthopaedic Surgery | DX: Z47.89 Encounter for other orthopedic aftercare (principal); Z98.1 Arthrodesis status | CPT/HCPCS: 72040; 99213 ==

== ENCOUNTER 2025-07-15 09:42 | Emergency (ER) | payer OTHER, SELFPAY ==
[2025-07-15 09:54] VITALS: BP 175/113; PULSE 80; RESP 18; TEMP 36.8; O2SAT 98
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
--- OUTSIDE RECORDS SUMMARY | 2025-07-15 10:09 | XMS_ITS | Clinical Summary ---
Author Organization [facility] [address] [facility] Address [address] [place] [address] Phone Care Team Providers Care General Production Laborer Name Role Phone Annabel Jackson MD Primary [...] Flex Sig/CT Colonography Q 5 years 06/14/20092000 RSV VACCINE (60+ or ) (1 - Risk 50-74 years 1-dose series) 2014 COLORECTAL SCREENING 07/17/2024 07/17/2014, 07/17/2014, 07/17/2014, Additional history exists Colorectal Cancer Screening 07/17/2024 INFLUENZA VACCINE (#1) 2025 , 06/25/2021, 07/10/2020, Additional history exists DTAP/TDAP/TD VACCINES (5 - T d or Tdap) 01/14/2032 01/13/2022, 11/11/2019, 05/16/2012, Additional history exists ZOSTER VACCINE Completed 08/26/2021, 06/25/[address] [place] [address] [employer] Care Teams General Production Laborer Relationship Specialty Start Date End Date Annabel Jackson MD [address] [place] [address] PCP - General Family Practice 11/29/22
[2025-07-15] MEDS: tetanus-dipt-pertussis 0.5 mL SDV IM (10:18)
--- NOTE | 2025-07-15 10:26 | W.ED.ANIMALB ---
HPI - Animal Bite General: Chief Complaint: Animal Bite Stated Complaint: Dog Bite L calf Time Seen by Provider: 07/15/25 10:15 History of Present Illness: 60-year-old male presents to the emergency room he was bit 3 days ago by one of his own dogs when they were fighting. His bit in the posterior left calf. He has been tending to it at home. He has been applying Adaptic and antibiotic ointment as well as dressing and changing them daily. He is not up-to-date on his tetanus his dogs were vaccinated. Related Data Home Medications ?Medication ?Instructions ?Recorded ?Confirmed acetaminophen 500 mg capsule 500 mg PO Q6H PRN Pain 02/07/22 07/15/25 albuterol sulfate 90 mcg/actuation 1 inh inhalation QID 02/07/22 07/15/25 aerosol inhaler atenolol 25 mg tablet 25 mg PO DAILY 02/07/22 07/15/25 atorvastatin 20 mg tablet 20 mg PO DAILY 02/07/22 07/15/25 finasteride 5 mg tablet 5 mg PO DAILY 02/07/22 07/15/25 losartan 50 mg tablet 50 mg PO DAILY 02/07/22 07/15/25 rabeprazole 20 mg tablet,delayed 20 mg PO BID 01/10/25 07/15/25 release Previous Rx's ?Medication ?Instructions ?Recorded amoxicillin 875 mg-potassium 1 tab PO BID #14 tabs 07/15/25 clavulanate 125 mg tablet mupirocin 2 % topical ointment 1 applic topical BID #15 grams 07/15/25 (Centany) Allergies Allergy/AdvReac Type Severity Reaction Status Date / Time Alpha-Gal Allergy Unknown Verified 07/15/25 07:36 (Acfixeosk-Ibvqm-5,3-Gala [facility] ED PFS: Medical History Hypertension COPD (chronic obstructive pulmonary disease) Surgical History History of surgery on lower extremity History of cholecystectomy 2019 History of back surgery 2009 Family History Mother , at age 58 Cancer Other CAD (coronary artery disease) Dementia Diabetes Social History Smoking and tobacco/nicotine status: never used tobacco/nicotine Alcohol intake: current Alcohol intake frequency: few times a month Substance/Drug Use: current Substance/Drug use frequency: daily Adopted: No Lives independently: Yes Marital status: Current occupational status: retired and disabled Physical Exam Extremity: OTHER: Examination of the wound full-thickness laceration of the medial posterior calf. No signs of infection. Moderate varicosities. No wound drainage. Course Vital Signs: Vital signs: Vital Signs Temperature 98.2 F 07/15/25 09:54 Pulse Rate 80 07/15/25 09:54 Respiratory Rate 18 07/15/25 09:54 Blood Pressure 175/113 07/15/25 09:54 Pulse Oximetry 98 07/15/25 09:54 Oxygen Delivery Me thod Room Air 07/15/25 09:54 MDM - Animal Bite Medical Decision Making Patient's home wound care has been excellent recommend that he continue the same for now apply topical mupirocin start him on Augmentin. He several days out would not recommend trying to close the wounds already began to heal by secondary intent. Tetanus updated his dogs both been vaccinated for rabies he does not need rabies vaccination. Follow-up with primary care. Lab Data I reviewed the patient's lab results. No radiology studies performed this visit Discharge Plan Discharge Patient Disposition: Home Clinical Impression: Dog bite Condition: Stable Prescriptions: New amoxicillin-pot clavulanate 875-125 mg tablet 1 tab PO BID Qty: 14 0RF mupirocin [Centany] 2 % ointment 1 applic topical BID Qty: 15 0RF No Action acetaminophen 500 mg capsule 500 mg PO Q6H PRN (Reason: Pain) albuterol sulfate 90 mcg/actuation HFA aerosol inhaler 1 inh inhalation QID atenolol 25 mg tablet 25 mg PO DAILY atorvastatin 20 mg tablet 20 mg PO DAILY finasteride 5 mg tablet 5 mg PO DAILY losartan 50 mg tablet 50 mg PO DAILY rabeprazole 20 mg Tablet,Delayed Release (Dr/Ec) 20 mg PO BID Discharge Orders: Discharge ED (Routine); Ordered 07/15/25 Ordered By: Praveen Seymour Referrals: Annabel Jackson MD [Primary Care Provider] Discharge Diet: Usual diet Discharge Activity: Resume usual activity Patient Instructions: Opioid Safety, Pain Management, Patient Portal & Yuli Instructions Activity Restrictions/Additional Instructions: Thank you for choosing [facility] for your healthcare needs today. It is very important that you follow up as instructed or that you return to the Emergency Department should you have concerns or if your condition changes or worsens in any way. Emergency department visits are focused on emergent conditions, in some cases you may require further evaluation on an outpatient basis. You were seen in the emergency room after a dog bite. The bite looks exceptionally good you have done an excellent job of wound care the last several days. Continue the wound care we did give you prescription for topical antibiotic ointment to place on the wound once a day. Also put you on Augmentin 1 tablet twice a day for 7 days. Your tetanus was updated. You reported that the dogs were vaccinated for rabies so you do not need rabies vaccinations. (Please note that included in your discharge packet is information concerning opioid safety and pain management. This information is given to all patients were discharged from the ER regardless of their discharge diagnosis or the medicines they usually take or are prescribed.) Print Language: Indonesian Coding Level of Care Code ED [employer] Technician for Marv Mckeon
== END 2025-07-15 10:33 | disposition home or self-care (01) ==
PROVIDERS: Emergency Provider Family Medicine; PCP Family Medicine
DX: S81.852A Open bite, left lower leg, initial encounter (principal); J44.9 Chronic obstructive pulmonary disease, unspecified; I10 Essential (primary) hypertension; W54.0XXA Bitten by dog, initial encounter
CPT/HCPCS: 90471; 90715; 99283

== ENCOUNTER 2025-07-26 18:44 | Emergency (ER) | payer OTHER, SELFPAY ==
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
--- OUTSIDE RECORDS SUMMARY | 2025-07-26 18:49 | XMS_ITS | Clinical Summary ---
Author Organization [facility] [address] [facility] Address [address] [place] [address] Phone Care Team Providers Care Manager Event Name Role Phone Annabel Jackson MD Primary [...] exists ZOSTER VACCINE Completed 08/26/2021, 06/25/[address] [place] [address] [employer] Care Teams Manager Event Relationship Specialty Start Date End Date Annabel Jackson MD [address] [place] [address] PCP - General Family Practice 11/29/22
[2025-07-26 18:54] VITALS: BP 122/78; PULSE 97; RESP 18; TEMP 36.7; O2SAT 94; BMI 31.3
[2025-07-26 19:39] VITALS: BP 105/71; O2SAT 97
--- NOTE | 2025-07-26 19:44 | CTR_ITS ---
PROCEDURE INFORMATION: Exam: CT Chest With Contrast; Diagnostic Exam date and time: 07/26/2025 8:22 PM Age: 60 years old Clinical indication: Prior surgery; Surgery date: 6+ months; Surgery type: Cervical fusion. Gb; C/O hemoptysis with sensation of something stuck in esophagus. ; Additional info: Coughing up blood, feels like something in esophagus TECHNIQUE: Imaging protocol: Diagnostic computed tomography of the chest with contrast. Radiation optimization: All CT scans at this facility use at least one of these dose optimization techniques: automated exposure control; mA and/or kV adjustment per patient size (includes targeted exams where dose is matched to clinical indication); or iterative reconstruction. Contrast material: OMNI 350; Contrast volume: 100 ml; Contrast route: INTRAVENOUS (IV); COMPARISON: MR shoulder LT wo con* [id number] 06/22/2022 3:06 PM RADIATION DOSE METRICS: Total DLP (mGy-cm): 494.49 FINDINGS: Lungs: Unremarkable. No consolidation. No masses. Pleural spaces: Unremarkable. No pneumothorax. No pleural effusion. Heart: Unremarkable. No cardiomegaly. No pericardial effusion. Lymph nodes: Unremarkable. No enlarged lymph nodes. Vasculature: Unremarkable. No aortic aneurysm. Liver: Hepatic steatosis. Gallbladder and biliary ducts: Cholecystectomy. Stomach: Prominent fluid in the stomach with gastric wall thickening, please correlate for gastritis. Bones/joints: Bridging productive degenerative endplate changes throughout the spine. Soft tissues: Unremarkable. CT/CT chest w con* [id number] IMPRESSION: 1. Prominent fluid in the stomach with gastric wall thickening, please correlate for gastritis. 2. Bridging productive degenerative endplate changes throughout the spine. 3. Cholecystectomy. 4. Hepatic steatosis.
--- NOTE | 2025-07-26 20:10 | W.ED.GIBLEED ---
HPI - GI Bleed General: Chief complaint: Airway/Esophagus Foreign Body Stated complaint: coughing up blood,Might be something in throat Time Seen by Provider: 07/26/25 19:25 History of Present Illness: 60-year-old male patient who states he started coughing or vomiting blood this afternoon/evening. He says it feels like something is stuck at the top of his chest sometime after eating. He says it hurts to swallow. No fever. No diarrhea. No abdominal pain. He does not have a history of esophageal food boluses, etc. Related Data Home Medications ?Medication ?Instructions ?Recorded ?Confirmed acetaminophen 500 mg capsule 500 mg PO Q6H PRN Pain 02/07/22 07/15/25 albuterol sulfate 90 mcg/actuation 1 inh inhalation QID 02/07/22 07/15/25 aerosol inhaler atenolol 25 mg tablet 25 mg PO DAILY 02/07/22 07/15/25 atorvastatin 20 mg tablet 20 mg PO DAILY 02/07/22 07/15/25 finasteride 5 mg tablet 5 mg PO DAILY 02/07/22 07/15/25 losartan 50 mg tablet 50 mg PO DAILY 02/07/22 07/15/25 rabeprazole 20 mg tablet,delayed 20 mg PO BID 01/10/25 07/15/25 release Previous Rx's ?Medication ?Instructions ?Recorded amoxicillin 875 mg-potassium 1 tab PO BID #14 tabs 07/15/25 clavulanate 125 mg tablet mupirocin 2 % topical ointment 1 applic topical BID #15 grams 07/15/25 (Centany) pantoprazole 40 mg tablet,delayed 40 mg PO BID #60 tabs 07/27/25 release sucralfate 1 gram tablet 1 g PO TID 4 weeks #84 tabs 07/27/25 Allergies Allergy/AdvReac Type Severity Reaction Status Date / Time Alpha-Gal Allergy Unknown Verified 07/26/25 18:58 ([id number]-1,3-Gala [facility] ED [facility]: Medical History Hypertension COPD (chronic obstructive pulmonary disease) Surgical History History of surgery on lower extremity History of cholecystectomy 2019 History of back surgery 2010 Family History Mother , at age 58 Cancer Other CAD (coronary artery disease) Dementia Diabetes Social History Smoking and tobacco/nicotine status: never used tobacco/nicotine Alcohol intake: current Alcohol intake frequency: few times a month Substance/Drug Use: current Substance/Drug use frequency: daily Adopted: No Lives independently: Yes Marital status: Current occupational status: retired and disabled Physical Exam Const: GENERAL APPEARANCE: cooperative and odor of alcohol detected; not ill appearing and not frail appearing HENMT: COMMON NORMALS: normocephalic, atraumatic and Normal external nose present HEAD & SCALP: normocephalic and atraumatic FACE & SINUS: normal facial exam and face symmetric NOSE: Normal external nose present Eye: COMMON NORMALS: Equal, round and reactive pupils present and EOMs intact bilaterally PUPIL: Yes Equal, round and reactive pupils present Neck/C-Spine: GENERAL: Yes trachea midline Chest: CHEST: Yes Symmetrical chest wall rise Resp: COMMON NORMALS: normal respiratory effort, No retractions, No use of accessory muscles and clear to auscultation bilaterally AUSCULTATION: clear to auscultation bilaterally Cardio: COMMON NORMALS: regular rate and regular rhythm RATE: regular rate RHYTHM: regular rhythm GI: COMMON NORMALS: Normal to inspection, nondistended, normoactive bowel sounds present Extremity: COMMON NORMALS: no pedal edema Neuro: VAL COMA SCALE: document GCS findings Val coma scale eye opening: Spontaneous [place] coma scale verbal response: Orientated Val coma scale motor response: Obey commands [place] coma scale total score: 15 SENSORY EXAM: Yes extremities (intact) Psych: COMMON NORMALS: speech normal SPEECH: Yes normal speech Skin: COMMON NORMALS: no rashes or lesions noted GENERAL SKIN EXAM: no rashes or lesions noted Course Vital Signs: Vital signs: Vital Signs Temperature 98.0 F 07/26/25 18:54 Pulse Rate 83 07/27/25 00:46 Respiratory Rate 17 07/27/25 00:46 Blood Pressure 131/74 07/27/25 00:46 Pulse Oximetry 91 07/27/25 00:46 Oxygen Delivery Me thod Room Air 07/27/25 00:46 MDM - GI Bleed Medical Decision Making Patient appeared mildly intoxicated on exam. 60-year-old male with 1 episode of hematemesis. Evidently, he has a history of gastritis and reflux. He has had no further episodes here, but continues to complain that it feels as if something is stuck in his throat. He is handling his own secretions, and has had sips of water without problems. Vitals were stable. His CBC is normal with a hemoglobin of 13. BNP is not remarkable. Alcohol level was 141. Urinalysis is negative. Lipase is 204. Liver enzymes, however, normal. His bilirubin is 0.5. CT of the chest is performed. It shows prominent fluid in the stomach with gastric wall thickening indicative of gastritis. No other acute findings were noted. As the patient was handling his own secretions, he was given Glucagon, Nitroglycerin, and soda . He handled this without significant vomiting or other insult. He is stable for discharge at this point. He can return for worsening of his symptoms, not handling secretions, etc. He will be treated with PPI plus Carafate for the gastritis. Close outpatient follow up. Lab Data 07/26/25 20:01 07/26/25 20:[address] 07/26/25 19:44 IMPRESSION: 1. Prominent fluid in the stomach with gastric wall thickening, please correlate for gastritis. 2. Bridging productive degenerative endplate changes throughout the spine. 3. Cholecystectomy. 4. Hepatic steatosis. Laboratory Results WBC 7.45 10^3/uL (3.29-11.43) 07/26/25 20:01 RBC 4.00 10^6/uL (3.85-5.65) 07/26/25 20:01 Hgb 13.00 g/dL (11.27-16.99) 07/26/25 20:01 Hct 38.3 % (37-53) 07/26/25 20:01 MCV 95.8 fl (82-101) 07/26/25 20: MCH 32.5 pg (27-33) 07/26/25 20: MCHC 33.9 g/dL (30-55) 07/26/25 20: RDW 13.7 % (12.1-15.1) 07/26/25 20:01 Plt Count 221 10^3/cmm (157-399) 07/26/25 20:01 MPV 9.9 fL (7.4-10.4) 07/26/25 20: Neut % (Auto) 53.1 % 07/26/25 20: Lymph % (Auto) 33.0 % 07/26/25 20:01 [place] % (Auto) 9.0 % 07/26/25 20:01 Eos % (Auto) 2.6 % 07/26/25 20:01 Baso % (Auto) 1.1 % 07/26/25 20: Neut # (Auto) 3.96 10^3/uL (1.8-7.7) 07/26/25 20: Lymph # (Auto) 2.5 10^3/uL (0.8-4.8) 07/26/25 20: [place] # (Auto) 0.7 10^3/uL (0.2-0.9) 07/26/25 20: Eos # (Auto) 0.2 10^3/uL (0.0-0.8) 07/26/25 20: Baso # (Auto) 0.1 10^3/uL (0.0-0.1) 07/26/25 20:01 Nucleated RBC % (auto) 0 % 07/26/25 20: Nucleated RBCs # 0.0 /100WBC 07/26/25 20: PT 13.00 SECONDS (12.1-14.9) 07/26/25 20: INR 0.92 (0.8-1.2) 07/26/25 20: APTT 25.1 SECONDS (23.9-36.7) 07/26/25 20: Sodium 137 mmol/L (136-145) 07/26/25 20: Potassium 4.1 mmol/L (3.5-5.1) 07/26/25 20: Chloride 102 mmol/L (98-107) 07/26/25 20: Carbon Dioxide 24 mmol/L (22-29) 07/26/25 20: Anion Gap 15.1 (5-19) 07/26/25 20: BUN 14 mg/dL (8-23) 07/26/25 20: Creatinine 0.9 mg/dL (0.7-1.2) 07/26/25 20: GFR Calculation 85.8 mL/min (90-130) L 07/26/25 20: Glucose 118 mg/dL (65-115) H 07/26/25 20: Calculated Osmolality 286 mOsm/kg (285-295) 07/26/25 20: Calcium 9.0 mg/dL (8.5-10.5) 07/26/25 20: Total Bilirubin 0.5 mg/dL (0.15-1.2) 07/26/25 20: AST 28 U/L (0-40) 07/26/25 20: ALT 31 U/L (0-41) 07/26/25 20: Alkaline Phosphatase 56 U/L (40-130) 07/26/25 20: Total Protein 6.5 g/dL (6.6-8.7) L 07/26/25 20: Albumin 4.0 g/dL (3.5-5.2) 07/26/25 20: Globulin 2.5 g/dL (1.3-4.6) 07/26/25 20: Lipase 204 U/L (13-60) H 07/26/25 20:01 Urine Color Yellow (Yellow) 07/26/25 21: Urine Appearance Clear (CLEAR) 07/26/25 21: Urine pH 5.5 (5-7) 07/26/25 21:09 Ur Specific [place] 1.007 (1.005-1.030) 07/26/25 21:09 Urine Protein Negative (Negative) 07/26/25 21: Urine Glucose (UA) Negative (Normal) 07/26/25 21: Urine Ketones Negative (Negative) 07/26/25 21: Urine Blood Trace (Negative) A 07/26/25 21: Urine Nitrate Negative (Negative) 07/26/25 21: Urine Bilirubin Negative (Negative) 07/26/25 21: Urine Urobilinogen 0.2 mg/dL (Negative) 07/26/25 21: Ur Leukocyte Esterase Negative (Negative) 07/26/25 21: Urine RBC 0-2 /hpf (0-2) 07/26/25 21: Urine WBC 0-5 /hpf (0-5) 07/26/25 21: Ur Squamous Epith Cells 0-5 /hpf (0-5) 07/26/25 21:09 Amorphous Sediment Not Reportable 07/26/25 21:09 Urine Bacteria None seen /hpf (NONE) 07/26/25 21:09 Hyaline Casts 0-4 /lpf H 07/26/25 21:09 Urine Opiates Screen Negative ng/mL (Negative) 07/26/25 21:09 Ur Barbiturates Screen Negative ng/mL (Negative) 07/26/25 21:09 Ur Phencyclidine Scrn Negative ng/mL (Negative) 07/26/25 21:09 Ur Amphetamines Screen Negative ng/mL (Negative) 07/26/25 21:09 U Benzodiazepines Scrn Negative ng/mL (Negative) 07/26/25 21:09 Urine Cocaine Screen Negative ng/mL (Negative) 07/26/25 21:09 U Marijuana (THC) Screen Positive ng/mL (Negative) H 07/26/25 21:09 Ethyl Alcohol 141 mg/dL (0-10) H 07/26/25 20:01 All radiology interpretation(s) finalized by discharge Discharge Plan Discharge Patient Disposition: Home Clinical Impression: Gastroesophageal reflux disease, Gastritis Condition: Stable Prescriptions: New pantoprazole 40 mg tablet,delayed release (DR/EC) 40 mg PO BID Qty: 60 0RF sucralfate 1 gram tablet 1 g PO TID 28 Days Qty: 84 0RF No Action acetaminophen 500 mg capsule 500 mg PO Q6H PRN (Reason: Pain) albuterol sulfate 90 mcg/actuation HFA aerosol inhaler 1 inh inhalation QID atenolol 25 mg tablet 25 mg PO DAILY atorvastatin 20 mg tablet 20 mg PO DAILY finasteride 5 mg tablet 5 mg PO DAILY losartan 50 mg tablet 50 mg PO DAILY rabeprazole 20 mg Tablet,Delayed Release (Dr/Ec) 20 mg PO BID amoxicillin-pot clavulanate 875-125 mg tablet 1 tab PO BID Qty: 14 0RF mupirocin [Centany] 2 % ointment 1 applic topical BID Qty: 15 0RF Discharge Orders: Discharge ED (Routine); Ordered 07/27/25 Ordered By: Gabe Esteban Referrals: Annabel Jackson MD [Primary Care Provider] - 1-3 days Patient Instructions: Gastritis (ED), Opioid Safety, Pain Management, Patient Portal & [place] Instructions Activity Restrictions/Additional Instructions: Medications as directed. Return for continuing to vomit blood, worsening chest or abdominal pain, trouble breathing, any other concerning symptoms. Medication should be taken for 30 days, as it can take that long for the esophagus and stomach lining to begin to heal. Follow-up with your doctor this coming week. Call Monday for an appointment. Print Language: [place] Coding Level of Care Code ED Hem Inspector for Marv Mckeon
[2025-07-26 20:13] LABS: Hematocrit 38.3 % (37-53); Hemoglobin 13.00 g/dL (11.27-16.99); Mean Corpuscular HGB Conc 33.9 g/dL (30-55); Mean Corpuscular Hemoglobin 32.5 pg (27-33); Mean Corpuscular Volume 95.8 fl (82-101); Nucleated Red Blood Cells % 0 %; Platelet Count 221 10^3/cmm (157-399); Red Blood Count 4.00 10^6/uL (3.85-5.65); White Blood Count 7.45 10^3/uL (3.29-11.43)
[2025-07-26 20:18] LABS: INR 0.92 (0.8-1.2); Prothrombin Time 13.00 SECONDS (12.1-14.9)
[2025-07-26 20:19] LABS: Partial Thromboplastin Time 25.1 SECONDS (23.9-36.7)
[2025-07-26 20:22] LABS: Alanine Aminotransferase 31 U/L (0-41); Albumin Level 4.0 g/dL (3.5-5.2); Alcohol Level 141 mg/dL (0-10); Alkaline Phosphatase 56 U/L (40-130); Anion Gap 15.1 (5-19); Aspartate Amino Transferase 28 U/L (0-40); Blood Urea Nitrogen 14 mg/dL (8-23); Calcium 9.0 mg/dL (8.5-10.5); Carbon Dioxide 24 mmol/L (22-29); Chloride 102 mmol/L (98-107); Creatinine Clr Calc Pharmacy 92.5900; Globulin 2.5 g/dL (1.3-4.6); Glucose 118 mg/dL (65-115); Lipase 204 U/L (13-60); Osmolality Calculated 286 mOsm/kg (285-295); Potassium 4.1 mmol/L (3.5-5.1); Sodium 137 mmol/L (136-145); Total Protein 6.5 g/dL (6.6-8.7)
[2025-07-26] MEDS: iohexol 350 mg/mL 500 mL Btl (per mL) IV (20:22)
[2025-07-26 20:45] VITALS: BP 118/73; O2SAT 94
[2025-07-26 21:21] LABS: Glucose Urine UA Negative (Normal); Nitrate Urine Negative (Negative); Specific Gravity, Urine 1.007 (1.005-1.030)
[2025-07-26 21:26] LABS: Add Urine Microscopic? YES
[2025-07-26 21:29] LABS: PCP Screen Urine Negative (Negative)
[2025-07-26 21:57] VITALS: BP 107/56; O2SAT 91
[2025-07-26] MEDS: lidocaine 2% viscous 15 ML, aluminum-mag hydrox-simethicon 30 ML, sucralfate oral liq 1 GM PO (22:57)
[2025-07-26] MEDS: pantoprazole 40 mg SDV 80 MG IVP (22:57)
[2025-07-26 23:00] VITALS: BP 145/96; O2SAT 95
[2025-07-27] MEDS: glucagon 1 mg/mL KIT 1 mL IVP (00:16)
[2025-07-27 00:46] VITALS: BP 131/74; PULSE 83; RESP 17; O2SAT 91
== END 2025-07-27 01:24 | disposition home or self-care (01) ==
PROVIDERS: Emergency Provider Emergency Medicine; PCP Family Medicine
DX: K21.9 Gastro-esophageal reflux disease without esophagitis (principal); K29.70 Gastritis, unspecified, without bleeding; J44.9 Chronic obstructive pulmonary disease, unspecified; I10 Essential (primary) hypertension
CPT/HCPCS: 36415; 71260; 80053; 80306; 80307; 81001; 83690; 85025; 85610; 85730; 96361; 96374; 96375; 99285; J1610; J2470; J7030; J9999

== ENCOUNTER → 2025-09-04 10:48 | Outpatient (BNVA) | payer OTHER, SELFPAY | PROVIDERS: PCP Family Medicine; Referring Provider Nurse Practitioner Family; Visit Provider Nurse Practitioner Family | DX: M54.2 Cervicalgia (principal) | CPT/HCPCS: 99204; 99214 ==

== ENCOUNTER → 2025-09-08 14:49 | Outpatient (BNVA) | payer OTHER, SELFPAY | PROVIDERS: PCP Family Medicine; Visit Provider Nurse Practitioner Family | DX: M79.18 Myalgia, other site (principal); M54.2 Cervicalgia | CPT/HCPCS: 20553; 99214; J1010; J3490 ==